=== PATIENT | female | born 1960 | race Caucasian/White ===

== ENCOUNTER 2024-04-13 06:45 | Day surgery (SDC) | payer OTHER ==
[2024-04-13] MEDS ORDERED: Metoclopramide 10 MG/2 ML SDV IVPUSH PRN (07:17)
[2024-04-13] MEDS ORDERED: Naloxone 0.4 MG/ML SDV IVPUSH PRN (07:17)
[2024-04-13] MEDS ORDERED: Albuterol 0.083% 2.5 MG/3 ML Neb Soln NEB PRN (07:17)
[2024-04-13] MEDS ORDERED: fentaNYL 50 MCG/ML SDV IVPUSH PRN (07:17)
[2024-04-13] MEDS ORDERED: Ondansetron 4 MG/2 ML SDV IVPUSH PRN (07:17)
[2024-04-13] MEDS ORDERED: Phenylephrine HCl In 0.9% NaCl 1 MG/10 ML Syringe IVPUSH PRN (07:17)
[2024-04-13] MEDS ORDERED: Morphine 2 MG/ML SYRINGE IVPUSH PRN (07:17)
[2024-04-13] MEDS ORDERED: HYDROmorphone 1 MG/ML Syringe IVPUSH PRN (07:17)
[2024-04-13] MEDS ORDERED: Bupivacaine 0.5%/EPINEPHrine 1:200,000 30 ML SDV ONE (07:19)
[2024-04-13] MEDS: Lactated Ringers 1,000 ML IV SCH (07:23)
[2024-04-13] MEDS ORDERED: Propofol 200 MG/20 ML SDV ONE (07:25)
[2024-04-13] MEDS ORDERED: fentaNYL 100 MCG/2 ML SDV ONE (07:26)
[2024-04-13] MEDS ORDERED: dexmedeTOMIDine HCl 200 MCG/2 ML SDV ONE (07:27)
[2024-04-13] MEDS ORDERED: Water For Injection, Sterile 20 ML ONE (07:27)
[2024-04-13] MEDS ORDERED: Ondansetron 4 MG/2 ML SDV ONE (07:56)
[2024-04-13] MEDS ORDERED: ceFAZolin 2 GM Vial ONE (07:56)
[2024-04-13] MEDS ORDERED: Ketamine HCL/NACL, ISO-OSM 50 MG/5 ML Syringe ONE (07:57)
[2024-04-13] MEDS ORDERED: ceFAZolin 2 GM in Sodium Chloride 0.9% 50 ML IV ONE (08:00)
== END 2024-04-13 10:45 | disposition home or self-care (01) ==
LOC: MW.SDS 06:45
PROVIDERS: ATTEND Orthopaedic Surgery
DX: S83.281A Other tear of lateral meniscus, current injury, right knee, initial encounter (principal); E03.9 Hypothyroidism, unspecified; E11.9 Type 2 diabetes mellitus without complications; F17.200 Nicotine dependence, unspecified, uncomplicated; Z79.4 Long term (current) use of insulin; Z79.890 Hormone replacement therapy; Z79.899 Other long term (current) drug therapy; Z88.0 Allergy status to penicillin; Z88.6 Allergy status to analgesic agent; X58.XXXA Exposure to other specified factors, initial encounter
CPT/HCPCS: 29881; J0131; J0690; J2405; J2704; J3010; J7120; J3490